=== PATIENT | male | born 1965 | race Caucasian/White ===

== ENCOUNTER 2017-05-05 07:06 | Emergency (ER) | payer MEDICARE, OTHER ==
[~2017-05-05] VITALS: Ht 185.4 cm; Wt 98.1 kg
[~2017-05-05 07:06] MED LIST: LISI10TA4 PO; METH-360 PO
[2017-05-05] MEDS: ketorolac trometh inj. 60 MG/2 ML VIAL IM ONE (07:55)
[2017-05-05] MEDS ORDERED: IBUP-1985 PO (08:50)
[2017-05-05 09:11] VITALS: BP 152/99
== END 2017-05-05 09:13 | disposition home or self-care (01) ==
LOC: ER 07:06
DX: S39.012A Strain of muscle, fascia and tendon of lower back, initial encounter (principal); M54.31 Sciatica, right side; G89.29 Other chronic pain; F15.90 Other stimulant use, unspecified, uncomplicated; Z98.890 Other specified postprocedural states; Z79.899 Other long term (current) drug therapy; X50.0XXA Overexertion from strenuous movement or load, initial encounter; Y93.89 Activity, other specified; Y92.89 Other specified places as the place of occurrence of the external cause; Y99.8 Other external cause status
CPT/HCPCS: 96372; 99283; J1885

== ENCOUNTER 2018-04-26 19:36 | Emergency (ER) | payer MEDICARE, OTHER ==
[~2018-04-26] VITALS: Ht 185.4 cm; Wt 93.1 kg
[~2018-04-26 19:36] MED LIST changes: +IBUP-1985 PO
[2018-04-26 19:43] VITALS: BP 137/98
[2018-04-26] MEDS ORDERED: proparacaine 0.5% ophthalmic drops 15ml EACHEYE ONE (20:20)
[2018-04-26] MEDS ORDERED: acetaminophen 325mg tablet PO ONE (20:20)
[2018-04-26] MEDS ORDERED: erythromycin ophthalmic ointment 1gm tube LEFTEYE ONE (21:10)
== END 2018-04-26 21:18 | disposition home or self-care (01) ==
LOC: ER 19:37
DX: T15.82XA Foreign body in other and multiple parts of external eye, left eye, initial encounter (principal); G89.29 Other chronic pain; M54.9 Dorsalgia, unspecified; F15.90 Other stimulant use, unspecified, uncomplicated; Z79.899 Other long term (current) drug therapy; Y92.89 Other specified places as the place of occurrence of the external cause
CPT/HCPCS: 65205; 99284

== ENCOUNTER 2018-06-11 09:38 | Emergency (ER) | payer MEDICARE | END 2018-06-11 11:10 | disposition left against medical advice (07) | LOC: ER 09:38 | DX: R10.9 Unspecified abdominal pain (principal); Z53.21 Procedure and treatment not carried out due to patient leaving prior to being seen by health care provider ==

== ENCOUNTER 2018-09-28 10:51 | Emergency (ER) | payer MEDICARE, MEDICAID ==
[~2018-09-28] VITALS: Ht 185.4 cm; Wt 95.0 kg
[2018-09-28 11:26] LABS: BASOPHILS # (AUTO) 0.1 X10'3 (0-0.2); EOSINOPHILS # (AUTO) 0.2 X10'3 (0-0.9); EOSINOPHILS % (AUTO) 2.8 % (0-6); HEMATOCRIT 48.4 % (42.0-52.0); HEMOGLOBIN 16.7 g/dl (14.0-17.9); MEAN CORPUSCULAR HEMOGLOBIN 30.9 PG (27.0-31.0); MEAN CORPUSCULAR HGB CONC 34.5 g/dL (33.0-36.5); MEAN CORPUSCULAR VOLUME 89.6 FL (78-98); MEAN PLATELET VOLUME 9.3 FL (7.4-10.4); MONOCYTES # (AUTO) 0.6 X10'3 (0-0.9); MONOCYTES % (AUTO) 7.6 % (2-12); NEUTROPHILS # (AUTO) 5.1 X10'3 (1.8-7.7); NEUTROPHILS % (AUTO) 63.6 % (42-75); PLATELET COUNT 191 X10'3 (140-440); RED CELL DISTRIBUTION WIDTH 12.9 % (11.5-14.5); WHITE BLOOD COUNT 8.1 X10'3 (4.5-11.0)
[2018-09-28 11:46] LABS: ALANINE AMINOTRANSFERASE 73 U/L (12-78); ALBUMIN/GLOBULIN RATIO 1.2 (1.1-1.5); ALKALINE PHOSPHATASE 48 IU/L (46-116); ANION GAP 11 (8-16); ASPARTATE AMINO TRANSFERASE 29 U/L (10-37); BLOOD UREA NITROGEN 18 MG/DL (7-18); BUN/CREATININE RATIO 16.1 (5.4-32.0); CALCIUM 8.8 MG/DL (8.5-10.1); CHLORIDE 105 MMOL/L (99-107); CREATININE 1.12 MG/DL (0.60-1.10); GLUCOSE 106 MG/DL (70-104); POTASSIUM 4.1 MMOL/L (3.5-5.1); SODIUM 138 MMOL/L (135-145); TOTAL CARBON DIOXIDE 22.2 MMOL/L (24-32); TOTAL PROTEIN 7.3 G/DL (6.4-8.2); TROPONIN I < 0.04 NG/ML (0.0-0.05); eGFR 69 ML/MIN
[2018-09-28 12:01] LABS: PARTIAL THROMBOPLASTIN TIME 30 SECONDS (22-32)
[2018-09-28] MEDS ORDERED: normal saline 1000ML IV soln IVB ONE (12:40)
[2018-09-28 13:24] VITALS: BP 147/104
== END 2018-09-28 13:27 | disposition home or self-care (01) ==
LOC: ER 10:52
DX: G62.9 Polyneuropathy, unspecified (principal); G89.29 Other chronic pain; R79.1 Abnormal coagulation profile; F15.90 Other stimulant use, unspecified, uncomplicated; Z98.890 Other specified postprocedural states; Z79.899 Other long term (current) drug therapy
CPT/HCPCS: 36415; 70450; 71045; 80053; 84484; 85025; 85610; 85730; 93005; 99284; J7030

== ENCOUNTER 2019-04-20 19:39 | Emergency (ER) | payer MEDICARE, MEDICAID ==
[~2019-04-20] VITALS: Ht 185.4 cm; Wt 95.5 kg
[2019-04-20] MEDS ORDERED: albuterol 2.5 MG/3 ML nebule NEB ONE (20:40)
[2019-04-20 21:45] VITALS: BP 138/89
== END 2019-04-20 21:44 | disposition home or self-care (01) ==
LOC: ER 19:39
DX: J11.1 Influenza due to unidentified influenza virus with other respiratory manifestations (principal); G89.29 Other chronic pain; F17.200 Nicotine dependence, unspecified, uncomplicated; F15.90 Other stimulant use, unspecified, uncomplicated; Z98.890 Other specified postprocedural states; Z79.899 Other long term (current) drug therapy
CPT/HCPCS: 71045; 87502; 87503; 94640; 94760; 99284

== ENCOUNTER 2019-12-12 17:55 | Emergency (ER) | payer BC, MEDICAID ==
[~2019-12-12] VITALS: Ht 185.4 cm; Wt 95.5 kg
[2019-12-12 18:20] VITALS: BP 154/111
[2019-12-12] MEDS ORDERED: MUPI22OI30 TOP (19:21)
[2019-12-12] MEDS ORDERED: CEPH500C5 PO (19:21)
== END 2019-12-12 19:31 | disposition home or self-care (01) ==
LOC: ER 17:56
DX: S00.31XA Abrasion of nose, initial encounter (principal); L08.9 Local infection of the skin and subcutaneous tissue, unspecified; G89.29 Other chronic pain; F15.90 Other stimulant use, unspecified, uncomplicated; Z98.890 Other specified postprocedural states; Z79.2 Long term (current) use of antibiotics; Z79.899 Other long term (current) drug therapy; X58.XXXA Exposure to other specified factors, initial encounter; Y93.89 Activity, other specified; Y92.89 Other specified places as the place of occurrence of the external cause; Y99.8 Other external cause status
CPT/HCPCS: 10060; 99283

== ENCOUNTER 2021-03-22 23:04 | Emergency (ER) | payer BC, MEDICAID ==
[~2021-03-22] VITALS: Ht 185.4 cm; Wt 93.1 kg
[~2021-03-22 23:04] MED LIST changes: +LISI10TA27 PO; -LISI10TA4 PO
[2021-03-22] MEDS ORDERED: ketorolac tromethamine 15mg/ml inj. IM ONE (23:30)
[2021-03-22] MEDS ORDERED: ondansetron 4mg rapidly disintigrating tab PO ONE (23:30)
[2021-03-22] MEDS ORDERED: HYDROcodone/acetaminophen 10/325mg tab PO ONE (23:30)
[2021-03-22] MEDS ORDERED: ONDA4TAB6 PO (23:44)
[2021-03-22] MEDS ORDERED: METH4TAB81 PO (23:44)
[2021-03-22] MEDS ORDERED: AMOX500C2 PO (23:44)
[2021-03-22] MEDS ORDERED: HYDR-3965 PO (23:44)
[2021-03-23 00:07] VITALS: BP 165/82
== END 2021-03-23 00:09 | disposition home or self-care (01) ==
LOC: ER 23:05
DX: K08.89 Other specified disorders of teeth and supporting structures (principal); G89.29 Other chronic pain; F15.90 Other stimulant use, unspecified, uncomplicated; Z98.890 Other specified postprocedural states; Z79.2 Long term (current) use of antibiotics; Z79.899 Other long term (current) drug therapy
CPT/HCPCS: 96372; 99283; J1885